=== PATIENT | female | born 1945 | race Caucasian/White ===

== ENCOUNTER 2018-06-05 12:05 | Emergency (ER) | payer BC, MEDICARE ==
[2018-06-05 12:29] VITALS: BP 148/61
--- NOTE | 2018-06-05 12:53 | UC ---
Ear Complaint HPI - HPI Summary HPI Summary: 72 yo female presents with left ear pain for the last 3 days. She tells me that she has had issues with cerumen impaction in the past and thinks this is the problem again. She has been feeling well otherwise and denies fever, chills, sinus symptoms, sore throat. - History of Current Complaint Chief Complaint: UCEar Stated Complaint: EAR COMPLAINT Time Seen by Provider: 06/05/18 12:52 Hx Obtained From: Patient Onset/Duration: Gradual Onset Severity Currently: None Pain Intensity: 0 Pain Scale Used: 0-10 Numeric - Allergies/Home Medications Allergies/Adverse Reactions: Allergies Allergy/AdvReac Type Severity Reaction Status Date / Time acetaminophen Allergy facail Verified 06/05/18 12:30 [From Tylenol PM] tingling diphenhydramine Allergy facail Verified 06/05/18 12:30 [From Tylenol PM] tingling Home Medications: Home Medications Presgen B Liquid 1 tab PO DAILY 06/05/18 [History Confirmed 06/05/18] PMH/Surg Hx/FS Hx/Imm Hx - Additional Past Medical History Additional PMH: None - Surgical History Surgical History: Yes Surgery Procedure, Year, and Place: 1962 & 1963 RIGHT FORARM GROWTH REMOVED [facility]. 1966 INTERNAL/EXTERNAL HEMORRHOIDECTOMY [facility]. 1977 [facility] - Family History Known Family History: Positive: Cardiac Disease - Social History Occupation: Retired Lives: With Family Alcohol Use: None Substance Use Type: None Smoking Status (MU): Never Smoked Tobacco Review of Systems All Other Systems Reviewed And Are Negative: Yes Constitutional: Positive: Negative Skin: Positive: Negative Eyes: Positive: Negative ENT: Positive: Ear Ache Respiratory: Positive: Negative Cardiovascular: Positive: Negative Gastrointestinal: Positive: Negative Neurovascular: Positive: Negative Neurological: Positive: Negative Psychological: Positive: Negative Physical Exam - Summary Physical Exam Summary: GENERAL: NAD. WDWN. No pain distress. SKIN: No rashes, sores, lesions, or open wounds. HEENT: Head: AT/NC Eyes: EOM intact. Conjunctiva clear without inflammation or discharge. Ears: Hearing grossly normal. B/L TMs occluded by brown hard cerumen. S/p irrigation TMs WNL and intact. Nose: Nasal mucosa pink and moist. NTTP maxillary and frontal sinus. Throat: Posterior oropharynx without exudates, erythema, or tonsillar enlargement. Uvula midline. NECK: Supple. Nontender. No lymphadenopathy. CHEST: No accessory muscle use. Breathing comfortably and in no distress. CV: Pulses intact. NEURO: Alert. PSYCH: Age appropriate behavior. Triage Information Reviewed: Yes Vital Signs: Initial Vital Signs Temp 98 F 06/05/18 12:26 Pulse 63 06/05/18 12:26 Resp 16 06/05/18 12:26 BP 148/61 06/05/18 12:26 Pulse Ox 98 06/05/18 12:26 Vital Signs Reviewed: Yes Ear Complaint Course/Dx - Course Course Of Treatment: B/L cerumen impaction with successful disimpaction via irrigation by nursing staff. Pt experienced complete resolution of her symptoms. - Differential Dx/Diagnosis Provider Diagnosis: Impacted cerumen of both ears Discharge - Sign-Out/Discharge Documenting (check all that apply): Patient Departure All imaging exams completed and their final reports reviewed: No Studies - Discharge Plan Condition: Stable Disposition: HOME Patient Education Materials: Cerumen Impaction (ED) Referrals: Gaudencio Gutierrez MD [Primary Care Provider] - Additional Instructions: If you develop a fever, shortness of breath, chest pain, new or worsening symptoms - please call your PCP or go to the ED. Your blood pressure was mildly elevated at todays visit. Please see your primary provider within 4 weeks for recheck and re-evaluation. - Billing Disposition and Condition Condition: STABLE Disposition: Home
== END 2018-06-05 13:22 | disposition home or self-care (01) ==
LOC: UCEAST 12:05
DX: H61.23 Impacted cerumen, bilateral (principal); Z88.6 Allergy status to analgesic agent; Z88.8 Allergy status to other drugs, medicaments and biological substances
CPT/HCPCS: 99213; G0463

== ENCOUNTER 2018-06-19 14:23 | Emergency (ER) | payer BC, MEDICARE ==
[2018-06-19 14:56] VITALS: BP 150/80
--- NOTE | 2018-06-19 15:11 | UC ---
Lower Extremity/Ankle HPI - HPI Summary HPI Summary: 72-year-old female comes in with a chief complaint of left great toe redness swelling and pain. Started couple days ago. Concerned might be an infection. She does not have diabetes she has no history of MRSA. She does have overgrown toenails and her did attempt to the toenail and the redness started after that. I also been soaking it without any improvement. No fevers no chills feels well otherwise. - History of Current Complaint Chief Complaint: UCLowerExtremity Stated Complaint: SWOLLEN TOE Time Seen by Provider: 06/19/18 14:53 Hx Last Menstrual Period: post Pain Intensity: 4 - Allergies/Home Medications Allergies/Adverse Reactions: Allergies Allergy/AdvReac Type Severity Reaction Status Date / Time benzonatate Allergy Intermediate loss of Verified 06/19/18 14:57 taste diphenhydramine Allergy facail Verified 06/19/18 14:57 [From Tylenol PM] tingling PMH/Surg Hx/FS Hx/Imm Hx Previously Healthy: Yes - Surgical History Surgical History: Yes Surgery Procedure, Year, and Place: 1962 & 1963 RIGHT FORARM GROWTH REMOVED [facility]. 1966 INTERNAL/EXTERNAL HEMORRHOIDECTOMY [facility]. 1977 [facility] - Family History Known Family History: Positive: Cardiac Disease - Social History Alcohol Use: None Substance Use Type: None Smoking Status (MU): Never Smoked Tobacco Review of Systems All Other Systems Reviewed And Are Negative: Yes Constitutional: Positive: Negative Skin: Positive: Other - SEE HPI Eyes: Positive: Negative ENT: Positive: Negative Respiratory: Positive: Negative Cardiovascular: Positive: Negative Gastrointestinal: Positive: Negative Motor: Positive: Negative Neurovascular: Positive: Negative Musculoskeletal: Positive: Negative Neurological: Positive: Negative Psychological: Positive: Negative Is Patient Immunocompromised?: No Physical Exam Triage Information Reviewed: Yes Appearance: Well-Appearing, No Pain Distress, Well-Nourished Vital Signs: Initial Vital Signs Temp 99.1 F 06/19/18 14:50 Pulse 77 06/19/18 14:50 Resp 16 06/19/18 14:50 BP 150/80 06/19/18 14:50 Pulse Ox 96 06/19/18 14:50 Vital Signs Reviewed: Yes Eye Exam: Normal Eyes: Positive: Conjunctiva Clear Neck: Positive: Supple Respiratory: Positive: No respiratory distress Musculoskeletal Exam: Normal Musculoskeletal: Positive: Strength Intact, ROM Intact Neurological Exam: Normal Neurological: Positive: Alert, Muscle Tone Normal Psychological Exam: Normal Psychological: Positive: Normal Response To Family, Age Appropriate Behavior Skin: Positive: Other - LEFT GREAT TOE WITH MILD SWELLING AND ERYTHEMA SURROUNDING A HYPERTROPHIC GREAT TOE NAIL. NO DRAINAGE. NO FLUCTUANCE. NO STREAKING. Lower Extremity Course/Dx - Differential Dx/Diagnosis Provider Diagnosis: Paronychia of great toe, left Discharge - Sign-Out/Discharge Documenting (check all that apply): Patient Departure All imaging exams completed and their final reports reviewed: No Studies - Discharge Plan Condition: Stable Disposition: HOME Prescriptions: Cephalexin CAP* [Keflex CAP*] 500 mg PO QID #40 cap Patient Education Materials: Paronychia (ED) Referrals: Gaudencio Gutierrez MD [Primary Care Provider] - Kim Mosley DPM [Doctor of Podiatric Medicine] - Additional Instructions: FOLLOW UP WITH PODIATRY. GET REEVALUATED SOONER IF YOUR CONDITION WORSENS OR ANY QUESTIONS OR CONCERNS. - Billing Disposition and Condition Condition: STABLE Disposition: Home
== END 2018-06-19 15:25 | disposition home or self-care (01) ==
LOC: UCEAST 14:23
DX: L03.032 Cellulitis of left toe (principal); Z88.8 Allergy status to other drugs, medicaments and biological substances
CPT/HCPCS: 99212; G0463